=== PATIENT | male | born 1995 | race Caucasian/White ===

== ENCOUNTER 2016-03-09 01:21 | Emergency (ER) | payer MEDICAID ==
[2016-03-09] MEDS ORDERED: KETOROLAC 60 MG/2 ML VIAL IM ONE (02:08)
[2016-03-09] MEDS ORDERED: DIAZEPAM 5 MG TAB ONE (02:08)
== END 2016-03-09 03:21 | disposition home or self-care (01) ==
LOC: ER 01:21
DX: S16.1XXA Strain of muscle, fascia and tendon at neck level, initial encounter (principal); S46.812A Strain of other muscles, fascia and tendons at shoulder and upper arm level, left arm, initial encounter; W01.0XXA Fall on same level from slipping, tripping and stumbling without subsequent striking against object, initial encounter; Y92.009 Unspecified place in unspecified non-institutional (private) residence as the place of occurrence of the external cause
CPT/HCPCS: 72050; 96372